=== PATIENT | female | born 1970 | race African-American/Black ===

== ENCOUNTER 2017-03-26 21:02 | Emergency (ER) | payer MEDICAID ==
[~2017-03-26] VITALS: Ht 177.8 cm; Wt 145.0 kg
[~2017-03-26 21:02] MED LIST: LEVO25TA2; WARF2TAB57
[2017-03-26] MEDS ORDERED: IBUPROFEN 800MG TABLET PO ONE (22:30)
[2017-03-26] MEDS ORDERED: HYDROCODONE/ACETAMINOPHEN 5/325MG TABLET PO ONE (22:30)
[2017-03-26] MEDS ORDERED: LEVOFLOXACIN 250MG TABLET PO ONE (22:30)
[2017-03-26 23:03] LABS: CLARITY URINE TURBID (CLEAR); COLOR URINE YELLOW (YELLOW); GLUCOSE URINE NEGATIVE (NEGATIVE); KETONES URINE NEGATIVE (NEGATIVE); LEUKOCYTE ESTERASE URINE 2+ (NEGATIVE); NITRITE URINE NEGATIVE (NEGATIVE); OCCULT BLOOD URINE 2+ (NEGATIVE); PROTEIN URINE 4+ (NEGATIVE); SPECIFIC GRAVITY URINE 1.018 (1.005-1.030)
[2017-03-27 00:08] VITALS: BP 148/92
== END 2017-03-27 00:26 | disposition home or self-care (01) ==
LOC: ER 21:54
DX: N30.90 Cystitis, unspecified without hematuria (principal); Z79.01 Long term (current) use of anticoagulants
CPT/HCPCS: 81001; 81025; 87077; 87086; 87186; 99284; Z7610

== ENCOUNTER 2021-12-02 19:38 | Emergency (ER) | payer MEDICAID ==
[~2021-12-02] VITALS: Ht 180.3 cm; Wt 160.0 kg
[2021-12-02 19:49] VITALS: BP 172/118
[2021-12-02] MEDS ORDERED: IBUP-2029 MT (21:20)
[2021-12-02] MEDS ORDERED: CEPH500C2 MT (21:20)
== END 2021-12-02 21:30 | disposition home or self-care (01) ==
LOC: ER 19:38
DX: L03.113 Cellulitis of right upper limb (principal); E78.00 Pure hypercholesterolemia, unspecified; Z98.890 Other specified postprocedural states
CPT/HCPCS: 99283